=== PATIENT | female | born 1980 | race African-American/Black ===

== ENCOUNTER 2017-10-19 16:24 | Emergency (ER) | payer SELFPAY ==
[~2017-10-19] VITALS: Ht 157.5 cm; Wt 59.0 kg
[2017-10-19 19:41] VITALS: BP 116/77
[2017-10-19] MEDS ORDERED: TRIAMCINOLONE 40MG/ML 1ML VIAL IM ONE (20:15)
[2017-10-19] MEDS ORDERED: FAMOTIDINE 20 MG TAB PO ONE (20:15)
[2017-10-19] MEDS ORDERED: diphenhdrAMINE HCL 50 MG/1 ML VL IM ONE (20:15)
== END 2017-10-19 20:36 | disposition home or self-care (01) ==
LOC: ER 16:32
DX: T78.40XA Allergy, unspecified, initial encounter (principal); Z88.8 Allergy status to other drugs, medicaments and biological substances
CPT/HCPCS: 96372; 99284; J1200; J3301